=== PATIENT | male | born 1945 | race Caucasian/White ===

== ENCOUNTER 2020-05-20 09:45 | Outpatient (CLI) | payer OTHER, SELFPAY ==
--- NOTE | 2020-05-20 09:59 | MR_ITS ---
WS: [id number] MRI LUMBAR SPINE NONCONTRAST TECHNIQUE: Sagittal T1, T2 and STIR imaging. Axial T1 and T2 imaging. CLINICAL INFORMATION: LOW BACK PAIN COMPARISON: None. FINDINGS: Mild lumbar curve. No acute compression. No high-grade central canal stenosis. Disc bulging worse L4- 5. L1-L2: Mild annular bulging. Slight narrowing of the subarticular recess right greater than left. Mod erate facet arthropathy. Foramen are patent. Mild central canal stenosis. L2-L3: No significant disc bulging. Spinal canal and foramen are patent. Moderate facet arthropathy. L3-L4: Mild disc bulging with slight effacement of the ventral thecal sac. Slight impingement marcelo ing left L4 nerve root in the subarticular recess. Foramen are patent. Mild/moderate facet arthropath y. L4-L5: Small central disc protrusion with moderate central canal stenosis. Impingement on the subarti cular recess and traversing L5 nerve roots. Moderate facet arthropathy. Mild to moderate left greater than right foraminal narrowing. L5-S1: Left eccentric disc osteophyte complex contacts the far exiting left L5 nerve root. Spinal can al and right foramen are patent. Moderate facet arthropathy. Peripelvic renal cysts. MR/MR lumbar spine wo con* [id number] IMPRESSION: 1. Mild lumbar curve. No acute compression. 2. Moderate central canal stenosis L4-5 with central disc protrusion and impin gement on the traversing L5 nerve roots bilaterally. 3. Mild central canal stenosis L1-2 and L3-4. Small central protrusion L3-4. 4. Mild to moderate left L4-5 foraminal narrowing. 5. Left eccentric disc osteophyte complex L5-S1 encroaches on the far exiting left L5 nerve root. 6. Moderate facet arthropathy L3-L5.
== END 2020-05-20 09:46 | disposition home or self-care (01) ==
LOC: RADWPI 09:53
PROVIDERS: PCP Family Medicine Adult Medicine; Visit Provider Emergency Medicine Emergency Medical Services
DX: M48.061 Spinal stenosis, lumbar region without neurogenic claudication (principal); M51.26 Other intervertebral disc displacement, lumbar region; M25.78 Osteophyte, vertebrae; M47.816 Spondylosis without myelopathy or radiculopathy, lumbar region
CPT/HCPCS: 72148

== ENCOUNTER → 2025-01-16 13:20 | Outpatient (BNVA) | payer OTHER, SELFPAY | PROVIDERS: PCP Family Medicine Adult Medicine; Visit Provider Nurse Practitioner Family | DX: L98.8 Other specified disorders of the skin and subcutaneous tissue (principal); D12.1 Benign neoplasm of appendix; L82.1 Other seborrheic keratosis; L81.4 Other melanin hyperpigmentation; D18.01 Hemangioma of skin and subcutaneous tissue; Z08 Encounter for follow-up examination after completed treatment for malignant neoplasm; Z85.828 Personal history of other malignant neoplasm of skin; D48.5 Neoplasm of uncertain behavior of skin | CPT/HCPCS: 11102; 99203 ==

== ENCOUNTER → 2025-02-15 09:42 | Outpatient (BNVA) | payer OTHER, SELFPAY | PROVIDERS: PCP Family Medicine Adult Medicine; Visit Provider Dermatology | DX: C44.519 Basal cell carcinoma of skin of other part of trunk (principal); C44.01 Basal cell carcinoma of skin of lip; C44.319 Basal cell carcinoma of skin of other parts of face | CPT/HCPCS: 17282; 99213 ==